=== PATIENT | male | born 1955 | race Caucasian/White ===

== ENCOUNTER 2024-02-27 11:04 | Outpatient (CLI) | payer BC, SELFPAY ==
--- NOTE | ~2024-02-27 | US_ITS ---
EXAMINATION: US retroperitoneal comp DATE: 02/27/2024 11:50 INDICATION: Right flank pain. TECHNIQUE: Multiple ultrasound grayscale images of the kidneys were obtained. COMPARISON: None. FINDINGS: The right kidney measures 10.1 x 6.5 x 6.1 cm. The left kidney measures 10.2 x 5.6 x 5.3 cm. The kidn eys demonstrate normal parenchymal echogenicity. There is mild left hydronephrosis. The bladder is no rmal. IMPRESSION: 1. Mild left hydronephrosis. Reviewed, dictated and finalized at location A.
== END 2024-02-27 11:05 | disposition home or self-care (01) ==
PROVIDERS: PCP Internal Medicine; Visit Provider Internal Medicine
DX: R10.9 Unspecified abdominal pain (principal)
CPT/HCPCS: 76770